=== PATIENT | female | born 1990 | race Asian ===

== ENCOUNTER 2024-04-09 10:57 | Inpatient (IN) | payer OTHER ==
[2024-04-09] MEDS: ELECTROLYTE-148 SOLN 1,000 ML IV SCH ×2 (11:30→15:37)
[2024-04-09 11:55] LABS: BASO % 0.2 % (0-2.0); EOS % 0.7 % (0-4.5); HEMATOCRIT 37.9 % (32.4-45.2); HEMOGLOBIN 12.2 GM/dL (10.7-15.3); LYMPH % 24.1 % (8-40); MCH 28.6 pg (25.7-33.7); MCHC 32.3 g/dl (32.0-36.0); MEAN CELL VOLUME 88.6 fl (80-96); MEAN PLT VOLUME 10.3 fl (7.5-11.1); MONO % 5.4 % (3.8-10.2); NEUT % 69.6 % (42.8-82.8); PLATELET COUNT 188 10^3/uL (134-434); RBC 4.28 M/mm3 (3.60-5.2); RDW 14.4 % (11.6-15.6); WHITE BLOOD COUNT 7.2 K/mm3 (4.0-10.0)
[2024-04-09 11:59] LABS: INR 0.94 (0.83-1.09); PROTHROMBIN TIME (PATIENT) 10.8 SEC (9.7-13.0)
[2024-04-09 12:02] LABS: ACTIVATED PTT 24.2 SECONDS (25.2-36.5)
[2024-04-09 12:08] LABS: POTASSIUM 4.1 mmol/L (3.5-5.1)
[2024-04-09 12:09] LABS: CALCIUM 9.1 mg/dL (8.5-10.1)
[2024-04-09 12:10] LABS: ALBUMIN 2.4 g/dl (3.4-5.0); BLOOD UREA NITROGEN 9.4 mg/dL (7-18)
[2024-04-09 12:13] VITALS: BMI 35.1
[2024-04-09 12:13] LABS: CREATININE 0.9 mg/dL (0.55-1.3)
[2024-04-09 12:15] LABS: BILIRUBIN,TOTAL 0.2 mg/dL (0.2-1); TOT PROT 6.1 g/dl (6.4-8.2)
[2024-04-09 12:35] LABS: SYPHILIS W/ RPR CONF NON-REACTIVE (NONREACTIVE)
[2024-04-09] MEDS ORDERED: BUTORPHANOL TARTRATE 1 MG/ML VIAL IVPB PRN (13:01)
[2024-04-09 13:03] LABS: HIV INTERPRETATION NEGATIVE (NEGATIVE)
[2024-04-09] MEDS ORDERED: FENTANYL/BUPIVACAINE/NS/PF - PCEA - 50 ML DISP.SYRIN EP ONE ×2 (14:18→19:30)
[2024-04-09] MEDS ORDERED: BUPIVACAINE HCL/PF 0.25% (2.5MG/ML) 10 ML VIAL ONE (14:31)
[2024-04-09] MEDS: FENTANYL/BUPIVACAINE/NS/PF - PCEA - 50 ML DISP.SYRIN EP SCH (14:45)
[2024-04-09] MEDS ORDERED: NALOXONE HCL 0.4 MG/ML VIAL IVPUSH PRN (14:51)
[2024-04-09] MEDS ORDERED: ACETAMINOPHEN 325 MG TABLET (FP) PO PRN (16:02)
[2024-04-09] MEDS ORDERED: BENZOCAINE 28 GM HEMORRHOIDAL OINTMENT TP PRN (16:02)
[2024-04-09] MEDS ORDERED: METHYLERGONOVINE MALEATE 0.2 MG/1 ML AMP IM PRN (16:02)
[2024-04-09] MEDS ORDERED: WITCH HAZEL 50% (TUCKS) 40 PAD/JAR PAD TP PRN (16:02)
[2024-04-09] MEDS ORDERED: oxyCODONE HCL 5 MG TABLET PO PRN (16:02)
[2024-04-09] MEDS ORDERED: BISACODYL 10 MG SUPP.RECT RC PRN (16:02)
[2024-04-09] MEDS: FERROUS SO4 325 MG TABLET (FP) PO SCH (17:31)
[2024-04-09] MEDS ORDERED: FENTANYL CITRATE/PF 50 MCG/ML VIAL ONE (20:00)
[2024-04-09] MEDS ORDERED: LABETALOL HCL 200 MG TABLET (FP) ONE (20:18)
[2024-04-09] MEDS: LABETALOL HCL 200 MG TABLET (FP) PO SCH (20:20)
[2024-04-09] MEDS ORDERED: OXYTOCIN 20 UNITS in 0.9% NS 20 UNIT/1,000 ML INFUS.BAG IV ONE (21:42)
[2024-04-09] MEDS ORDERED: LIDOCAINE HCL 1% PRESERVATIVE FREE - 30ML VIAL ONE (21:42)
[2024-04-09] MEDS ORDERED: MISOPROSTOL 200 MCG TABLET ONE (22:12)
[2024-04-09] MEDS: OXYTOCIN 20 UNITS in 0.9% NS 20 UNIT/1,000 ML INFUS.BAG IV SCH (22:17)
[2024-04-09] MEDS: MISOPROSTOL 200 MCG TABLET PR ONE (22:18)
[2024-04-09 22:28] LABS: CORD PCO2 49.2 mmHg (30-78); CORD pH 7.226 (7.14-7.44)
[2024-04-09 22:31] LABS: CORD BASE EXCESS -8.6 mmol/L (0-2); CORD HCO3 21.1 mmHg (20-29); CORD PCO2 58.6 mmHg (30-78); CORD pH 7.174 (7.14-7.44)
[2024-04-10] MEDS ORDERED: MISOPROSTOL 200 MCG TABLET PR ONE (00:15)
[2024-04-10] MEDS ORDERED: AZITHROMYCIN IVPB 500 MG/250 ML BAG IVPB ONE (00:17)
[2024-04-10] MEDS: AZITHROMYCIN IVPB 500 MG/250 ML BAG IVPB ONE (00:35)
[2024-04-10] MEDS: PROMETHAZINE HCL 25 MG/1 ML VIAL IVPB ONE (00:36)
[2024-04-10] MEDS: IBUPROFEN 600 MG TABLET (FP) PO PRN (00:36)
[2024-04-10 07:19] LABS: BASO % 0.3 % (0-2.0); EOS % 0.3 % (0-4.5); HEMATOCRIT 31.2 % (32.4-45.2); HEMOGLOBIN 10.3 GM/dL (10.7-15.3); LYMPH % 19.2 % (8-40); MCHC 33.2 g/dl (32.0-36.0); MEAN CELL VOLUME 87.4 fl (80-96); MEAN PLT VOLUME 9.6 fl (7.5-11.1); MONO % 7.6 % (3.8-10.2); NEUT % 72.6 % (42.8-82.8); PLATELET COUNT 149 10^3/uL (134-434); RBC 3.56 M/mm3 (3.60-5.2); RDW 14.6 % (11.6-15.6); WHITE BLOOD COUNT 11.1 K/mm3 (4.0-10.0)
[2024-04-10] MEDS: PRENATAL VITAMINS W/ FOLIC ACID TABLET (FP) PO SCH (09:15)
[2024-04-10] MEDS: SENNOSIDES/DOCUSATE COMBO (SENNA PLUS) TABLET (UD) PO PRN (21:46)
[2024-04-11 09:07] VITALS: RESP 17
[2024-04-11] MEDS: FLU VACCINE (FLULAVAL) PF 45 MCG/0.5 ML SYRINGE 2024-2025 IM ONE (11:11)
[2024-04-11] MEDS: DIPHTH,PERTUSS(ACELL),TET 0.5 ML DISP.SYRIN IM ONE (11:15)
[2024-04-11 16:25] VITALS: BP 118/71; PULSE 92; TEMP 98.1
[2024-04-11] MEDS: BENZOCAINE 20% 57 GM BOTTLE TP PRN (16:40)
== END 2024-04-11 18:40 | disposition home or self-care (01) | DRG 560 ==
LOC: JLDR 10:57 → J3W 04-10 00:52
PROVIDERS: ADMIT Obstetrics & Gynecology; ATTEND Obstetrics & Gynecology
PROC: 10E0XZZ Delivery of Products of Conception, External Approach (ICD-10-PCS; principal; 2024-04-09)
PROC: 0KQM0ZZ Repair Perineum Muscle, Open Approach (ICD-10-PCS; 2024-04-09)
PROC: 0W8NXZZ Division of Female Perineum, External Approach (ICD-10-PCS; 2024-04-09)
DX: O26.893 Other specified pregnancy related conditions, third trimester (principal); O70.1 Second degree perineal laceration during delivery; A49.3 Mycoplasma infection, unspecified site; N34.1 Nonspecific urethritis; Z3A.39 39 weeks gestation of pregnancy; Z37.0 Single live birth
CPT/HCPCS: 36415; 36600; 59409; 80053; 82803; 82962; 85025; 85610; 85730; 86780; 86850; 86900; 86901; 87389; 90656; 90715; G0008